=== PATIENT | female | born 1995 | race Caucasian/White ===

== ENCOUNTER 2016-10-25 16:37 | Observation (INO) | payer BC, MEDICAID ==
[2016-10-25 17:31] LABS: AMORPHOUS SEDIMENT,URINE TRACE /HPF; APPEARANCE,URINE CLOUDY; BILIRUBIN,URINE NEGATIVE (NEGATIVE); GLUCOSE, URINE NEGATIVE (NEGATIVE); KETONES,URINE NEGATIVE (NEGATIVE); LEUKOCYTE ESTERASE,URINE NEGATIVE (NEGATIVE); NITRITE,URINE NEGATIVE (NEGATIVE); PROTEIN,URINE NEGATIVE (NEGATIVE); UROBILINOGEN,URINE NEGATIVE mg/dL (<2.0)
[2016-10-25 17:45] LABS: URINE BARBITURATES SCREEN NEGATIVE; URINE METHADONE SCREEN NEGATIVE; URINE OPIATES LOW NEGATIVE; URINE PHENCYCLIDINE SCREEN NEGATIVE
[2016-10-25] MEDS ORDERED: NALBUPHINE HCL INJ 10 MG/1 ML AMPULE ONE (17:49)
[2016-10-25 18:05] LABS: ABSOLUTE EOSINOPHILS # (AUTO) 0.1 10^3/uL (0.0-0.6); ABSOLUTE LYMPHOCYTES (AUTO) 1.9 10^3/uL (0.5-4.7); ABSOLUTE MONOCYTES (AUTO) 0.6 10^3/uL (0.1-1.4); ABSOLUTE NEUT (AUTO) 7.8 10^3/uL (1.7-8.2); BASOPHILS % (AUTO) 0.1 % (0-2); EOSINOPHILS % (AUTO) 1.2 % (0-6); HEMATOCRIT 37.6 % (36.0-47.0); HEMOGLOBIN 12.7 g/dL (12.0-15.5); HGB HCT DIFFERENCE 0.5; LYMPHOCYTES % (AUTO) 18.1 % (13-45); MEAN CORPUSCULAR HGB CONC 33.8 g/dL (32.0-36.0); MEAN CORPUSCULAR VOLUME 92 fl (80-97); MONOCYTES % (AUTO) 5.6 % (3-13); RED BLOOD COUNT 4.11 10^6/uL (3.72-5.28); RED CELL DISTRIBUTION WIDTH 13.6 % (11.5-14.0); WHITE BLOOD COUNT 10.4 10^3/uL (4.0-10.5)
[2016-10-25 18:29] LABS: ALANINE AMINOTRANSFERASE 22 U/L (9-52); ALBUMIN 3.6 g/dL (3.5-5.0); ALKALINE PHOSPHATASE 103 U/L (38-126); ANION GAP 11 (5-19); ASPARTATE AMINO TRANSFERASE 17 U/L (14-36); BILIRUBIN,DIRECT 0.2 mg/dL (0.0-0.4); BILIRUBIN,TOTAL 0.3 mg/dL (0.2-1.3); BLOOD UREA NITROGEN 5 mg/dL (7-20); CALCIUM 9.1 mg/dL (8.4-10.2); CARBON DIOXIDE 19 mmol/L (22-30); CHLORIDE 105 mmol/L (98-107); CREATININE RESULT 0.47 mg/dL (0.52-1.25); GLUCOSE 82 mg/dL (75-110); POTASSIUM 4.2 mmol/L (3.6-5.0); SODIUM 135.4 mmol/L (137-145); TOTAL PROTEIN 6.8 g/dL (6.3-8.2)
[2016-10-25] MEDS ORDERED: HYDROMORPHONE HCL INJ/PF 2 MG/ML AMPULE ONE (18:52)
--- NOTE | 2016-10-25 18:53 | RADIOLOGY REPORT (SQ) ---
EXAM DESCRIPTION: U/S RETROPERITON (RENAL/AORTA) COMPLETED DATE/TIME: 10/25/2016 6:39 pm REASON FOR STUDY: flank pain COMPARISON: None. TECHNIQUE: Dynamic and static grayscale images acquired of the kidneys and bladder and recorded on P ACS. Additional selected color Doppler and spectral images recorded. LIMITATIONS: None. FINDINGS: RIGHT KIDNEY: Normal size. Normal echogenicity. No solid or suspicious masses. No hydrone phrosis. No calcifications. LEFT KIDNEY: Normal size. Normal echogenicity. No solid or suspicious masses. No hydronephrosis. No calcifications. BLADDER: No masses. OTHER FINDINGS: No other significant finding. IMPRESSION: NORMAL RENAL AND BLADDER ULTRASOUND. COMMENT: The degree of renal pelvicalyceal dilation is within normal limits for the patient's curren t stage of . TECHNICAL DOCUMENTATION: JOB ID: [id number] [employer]- All Rights Reserved
--- NOTE | 2016-10-25 19:05 | RADIOLOGY REPORT (SQ) ---
EXAM DESCRIPTION: U/S OB LIMITED COMPLETED DATE/TIME: 10/25/2016 6:49 pm REASON FOR STUDY: cervical length, pre term labor COMPARISON: None. TECHNIQUE: Limited transabdominal grayscale ultrasound for evaluation of specific requested obstetri adina parameters. LIMITATIONS: None. FINDINGS: CERVICAL LENGTH: 3.3 cm Closed. PARESH: Not done cm. FHR: 139 beats per minute. PRESENTATION: Breech OTHER: No other significant findings. IMPRESSION: There is a live fetus in a breech presentation. The cervix is closed and measures 3.3 c m. Trimester of : Third trimester - 28 weeks to delivery. TECHNICAL DOCUMENTATION: JOB ID: [id number] [employer]- All Rights Reserved
[2016-10-25] MEDS ORDERED: DIPHENHYDRAMINE HCL 50 MG/ML VIAL ONE (19:37)
[2016-10-26] MEDS: OXYCODONE-ACETAMINOPHEN 5-325 MG TABLET PO PRN ×3 (00:15→09:05)
--- NOTE | 2016-10-26 14:25 | PDOC PROGRESS REPORT ---
Subjective Progress Note for:: 10/26/16 Subjective:: indicates pain is improved from admission. is tolerating PO without difficulty Physical Exam - Physical Exam Vital Signs: Temp Pulse Resp BP Pulse Ox 97.9 F 85 16 107/58 L 99 10/26/16 08:05 10/26/16 08:05 10/26/16 08:05 10/26/16 08:05 10/26/16 08:05 Intake & Output 10/25/16 10/26/16 10/27/16 06:59 06:59 06:59 Intake Total 1300 Output Total 500 2500 Balance 800 -2500 Weight 87.95 kg General appearance: PRESENT: no acute distress GI/Abdominal exam: PRESENT: soft - gravid, +CVA tenderness on left Result Laboratory Results: 10/25/16 17:34 10/25/16 17:34 10/25/16 10/25/16 10/25/16 17:05 17:34 17:34 WBC 10.4 RBC 4.11 Hgb 12.7 Hct 37.6 MCV 92 MCH 31.0 MCHC 33.8 RDW 13.6 Plt Count 165 Seg Neutrophils % 75.0 Lymphocytes % 18.1 Monocytes % 5.6 Eosinophils % 1.2 Basophils % 0.1 Absolute Neutrophils 7.8 Absolute Lymphocytes 1.9 Absolute Monocytes 0.6 Absolute Eosinophils 0.1 Absolute Basophils 0.0 Sodium 135.4 L Potassium 4.2 Chloride 105 Carbon Dioxide 19 L Anion Gap 11 BUN 5 L Creatinine 0.47 L Est GFR ( Amer) > 60 Est GFR (Non-Af Amer) > 60 Glucose 82 Calcium 9.1 Total Bilirubin 0.3 AST 17 ALT 22 Alkaline Phosphatase 103 Total Protein 6.8 Albumin 3.6 Urine Color YELLOW Urine Appearance CLOUDY Urine pH 8.0 Ur Specific [place] 1.010 Urine Protein NEGATIVE Urine Glucose (UA) NEGATIVE Urine Ketones NEGATIVE Urine Blood LARGE H Urine Nitrite NEGATIVE Ur Leukocyte Esterase NEGATIVE Urine RBC (Auto) >182 Impressions: Obstetrics Ultrasound 10/25/16 00:00 IMPRESSION: There is a live fetus in a breech presentation. The cervix is closed and measures 3.3 cm. Trimester of : Third trimester - 28 weeks to delivery. Renal Ultrasound 10/25/16 00:00 IMPRESSION: NORMAL RENAL AND BLADDER ULTRASOUND. Assessment & Plan - Diagnosis (1) Renal lithiasis Is this a current diagnosis for this admission?: Yes (2) Second trimester Is this a current diagnosis for this admission?: Yes - Time Time Spent with patient: Less than 15 minutes Critical Time spent with patient: Less than 15 minutes Anticipated discharge: Home Within: within 24 hours Disposition: continue IV hydration and pain control. If continues to improve overnight will discharge in AM.
[2016-10-26 15:20] LABS: APPEARANCE,URINE SLIGHTLY-CLOUDY; BILIRUBIN,URINE NEGATIVE (NEGATIVE); GLUCOSE, URINE NEGATIVE (NEGATIVE); KETONES,URINE NEGATIVE (NEGATIVE); LEUKOCYTE ESTERASE,URINE TRACE (NEGATIVE); NITRITE,URINE NEGATIVE (NEGATIVE); PROTEIN,URINE NEGATIVE (NEGATIVE); URINE SPECIFIC GRAVITY 1.004; UROBILINOGEN,URINE NEGATIVE mg/dL (<2.0)
[2016-10-26] MEDS: RINGERS SOLUTION,LACTATED 1,000 ML IV PRN (18:30)
[2016-10-27] MEDS: OXYCODONE-ACETAMINOPHEN 5-325 MG TABLET PO PRN ×2 (02:24→09:44)
[2016-10-27] MEDS ORDERED: HYDROMORPHONE HCL INJ/PF 2 MG/ML AMPULE ONE (03:36)
[2016-10-27] MEDS ORDERED: HYDROMORPHONE HCL INJ/PF 2 MG/ML AMPULE IV ONE (03:45)
[2016-10-27] MEDS ORDERED: CEFTRIAXONE 1 GM/D5W RTU 1 GM/50 ML RTUPB IV ONE ×2 (03:57→04:00)
[2016-10-27] MEDS: RINGERS SOLUTION,LACTATED 1,000 ML IV PRN ×2 (04:04→19:32)
--- NOTE | 2016-10-27 09:36 | PDOC PROGRESS REPORT ---
Subjective Subjective:: Pt reports feeling a little better this morning Had to receive IV Dilaudid overnight for pain control No n/v No ctx's, vb or lof Physical Exam - Physical Exam Vital Signs: Temp Pulse Resp BP Pulse Ox 98.2 F 83 16 108/68 100 10/26/16 20:08 10/26/16 20:08 10/26/16 20:08 10/26/16 20:08 10/26/16 20:08 Intake & Output 10/26/16 10/27/16 10/28/16 06:59 06:59 06:59 Intake Total 1300 1825 Output Total 500 3500 Balance 800 -1675 Weight 87.95 kg General appearance: PRESENT: no acute distress, cooperative, well-developed GI/Abdominal exam: PRESENT: soft - Mild Left CVA tenderness Result Laboratory Results: 10/25/16 17:34 10/25/16 17:34 10/26/16 14:50 Urine Color STRAW Urine Appearance SLIGHTLY-CLOUDY Urine pH 8.0 Ur Specific [place] 1.004 Urine Protein NEGATIVE Urine Glucose (UA) NEGATIVE Urine Ketones NEGATIVE Urine Blood MODERATE H Urine Nitrite NEGATIVE Ur Leukocyte Esterase TRACE H Urine WBC (Auto) 3 Urine RBC (Auto) 6 Impressions: Obstetrics Ultrasound 10/25/16 00:00 IMPRESSION: There is a live fetus in a breech presentation. The cervix is closed and measures 3.3 cm. Trimester of : Third trimester - 28 weeks to delivery. Renal Ultrasound 10/25/16 00:00 IMPRESSION: NORMAL RENAL AND BLADDER ULTRASOUND. Assessment & Plan - Diagnosis (1) Renal lithiasis Is this a current diagnosis for this admission?: Yes (2) Second trimester Is this a current diagnosis for this admission?: Yes - Time Time Spent with patient: 15-24 minutes Medications reviewed and adjusted accordingly: Yes Anticipated discharge: Home Within: within 24 hours - Will continue IV Rocephin for another 24 hours Plan d/ c in AM
[2016-10-27 10:07] LABS: ABSOLUTE EOSINOPHILS # (AUTO) 0.1 10^3/uL (0.0-0.6); ABSOLUTE LYMPHOCYTES (AUTO) 1.5 10^3/uL (0.5-4.7); ABSOLUTE MONOCYTES (AUTO) 0.5 10^3/uL (0.1-1.4); ABSOLUTE NEUT (AUTO) 6.5 10^3/uL (1.7-8.2); BASOPHILS % (AUTO) 0.2 % (0-2); EOSINOPHILS % (AUTO) 1.2 % (0-6); HEMATOCRIT 35.6 % (36.0-47.0); HGB HCT DIFFERENCE 0.4; LYMPHOCYTES % (AUTO) 17.7 % (13-45); MEAN CORPUSCULAR HEMOGLOBIN 31.2 pg (27.0-33.4); MEAN CORPUSCULAR HGB CONC 33.6 g/dL (32.0-36.0); MEAN CORPUSCULAR VOLUME 93 fl (80-97); MONOCYTES % (AUTO) 5.3 % (3-13); RED BLOOD COUNT 3.84 10^6/uL (3.72-5.28); SEGMENTED NEUTROPHILS % (AUTO) 75.6 % (42-78); WHITE BLOOD COUNT 8.6 10^3/uL (4.0-10.5)
[2016-10-27 10:29] LABS: ANION GAP 7 (5-19); BLOOD UREA NITROGEN 4 mg/dL (7-20); CALCIUM 8.8 mg/dL (8.4-10.2); CARBON DIOXIDE 24 mmol/L (22-30); CHLORIDE 105 mmol/L (98-107); CREATININE RESULT 0.45 mg/dL (0.52-1.25); GLUCOSE 72 mg/dL (75-110); POTASSIUM 3.8 mmol/L (3.6-5.0); SODIUM 136.4 mmol/L (137-145)
[2016-10-27] MEDS: CEFTRIAXONE 1 GM/D5W RTU 1 GM/50 ML RTUPB IV SCH (17:24)
[2016-10-28] MEDS: RINGERS SOLUTION,LACTATED 1,000 ML IV PRN (02:52)
[2016-10-28] MEDS: CEFTRIAXONE 1 GM/D5W RTU 1 GM/50 ML RTUPB IV SCH (05:43)
[2016-10-28 09:28] VITALS: BP 109/69
--- NOTE | 2016-10-28 10:39 | Admission Physical ---
Datetime Report Generated by CPN: 10/28/2016 10:39 CURRENT ADMISSION Chief Complaint: Maternal Discomfort; Other Chief Complaint Other: left flank pain Indication for Induction: Not Applicable Admit Plan: Admit to Unit Admit Plan- Other: admit to floor for pain control ALLERGIES Medication Allergies: Yes Medication Allergies: dexamethasone/tingling (03/11/2016); grapefruit/MO/SKIN RASH (03/09/2016); banana/SV/Anaphylaxis (03/09/2016) Latex: No Latex Allergies OBSTETRICAL HISTORY : 2 Para: 1 Term: 1 : 0 SAB: 0 IAB: 0 Ectopic: 0 Livin Cesareans: 1 VBACs: 0 Multiple Births: 0 Gestational Diabetes: No Rh Sensitization: No Incompetent Cervix: No JEREMIAH: No Infertility: No ART Treatment: No Uterine Anomaly: No IUGR: No Hx Previous C/S: Yes Macrosomia: No Hx Loss/Stillborn: No PIH: No Hx : No Placenta Previa/Abruption: No Depression/PP Depression: No PTL/PROM: No Post Hemorrhage: No Obstetrical History Comments: G1: c/s for chorio SEE RECORDS Alcohol: No Marijuana : No Cocaine: No Other Illicit Drugs: No Cigarettes: Never Smoker. [id number] MEDICAL HISTORY Diabetes: No Blood Transfusion: No Pulmonary Disease (Asthma, TB): No Breast Disease: No Hypertension: No Floor Nurse Surgery: No Heart Disease: No Hosp/Surgery: Yes Autoimmune Disorder: No Anesthetic Complications: No Kidney Disease: Yes Abnormal Pap Smear: No Neuro/Epilepsy: No Psychiatric Disorders: No Other Medical Diseases: No Hepatitis/Liver Disease: No Significant Family History: No Varicosities/Phlebitis: No Trauma/Violence : No Thyroid Dysfunction: No Medical History Comments: c/s kidney infection widsom teeth, lumpectomy left armpit PPD- zoloft after G1 INFECTIOUS HISTORY Gonorrhea: No Genital Herpes: No Chlamydia: No Tuberculosis: No Syphilis: No Hepatitis: No HIV/AIDS Exposure: No Rash or Viral Illness: No HPV: No PHYSICAL EXAM General: Normal HEENT: Normal Neurologic: Normal Thyroid: Normal Heart: Normal Lungs: Normal Breast: Deferred Back: Normal Abdomen: Abnormal Genitourinary Exam: Normal Extremities: Normal DTRs: Normal Pelvic Type: Adequate Physical Exam Comments: CVAT and flank pain. LLQ ttp no ttp over uterine incision site Vital Signs: Reviewed; Within Normal Limits VAGINAL EXAM Dilatation: 0 Effacement: 0 Station: -3 FETUS A Monitoring: External US FHR- Baseline: 130 Variability: Moderate 6-25bpm Accelerations: 10X10 FHR Category: Category I PLANS FOR LABOR AND DELIVERY Feeding Preference: Breast Benefit of Breast Feed Discussed: Yes Circumcision: N/A INFORMED CONSENT Informed Consent Obtained: Section Delivery; Risks, Benefits and Alternatives Discussed
--- NOTE | 2016-10-28 10:49 | Admission Physical ---
Datetime Report Generated by CPN: 10/28/2016 10:49 CURRENT ADMISSION Chief Complaint: Maternal Discomfort; Other Chief Complaint Other: left flank pain Indication for Induction: Not Applicable Admit Plan: Admit to Unit Admit Plan- Other: admit to floor for pain control ALLERGIES Medication Allergies: Yes Medication Allergies: dexamethasone/tingling (03/11/2016); grapefruit/MO/SKIN RASH (03/09/2016); banana/SV/Anaphylaxis (03/09/2016) Latex: No Latex Allergies OBSTETRICAL HISTORY EDC: 01/29/2017 00:00 : 2 Para: 1 Term: 1 : 0 SAB: 0 IAB: 0 Ectopic: 0 Livin Cesareans: 1 VBACs: 0 Multiple Births: 0 Gestational Diabetes: No Rh Sensitization: No Incompetent Cervix: No JEREMIAH: No Infertility: No ART Treatment: No Uterine Anomaly: No IUGR: No Hx Previous C/S: Yes Macrosomia: No Hx Loss/Stillborn: No PIH: No Hx : No Placenta Previa/Abruption: No Depression/PP Depression: No PTL/PROM: No Post Hemorrhage: No Obstetrical History Comments: G1: c/s for chorio SEE RECORDS Alcohol: No Marijuana : No Cocaine: No Other Illicit Drugs: No Cigarettes: Never Smoker. [id number] MEDICAL HISTORY Diabetes: No Blood Transfusion: No Pulmonary Disease (Asthma, TB): No Breast Disease: No Hypertension: No Sausage Stuffer Surgery: No Heart Disease: No Hosp/Surgery: Yes Autoimmune Disorder: No Anesthetic Complications: No Kidney Disease: Yes Abnormal Pap Smear: No Neuro/Epilepsy: No Psychiatric Disorders: No Other Medical Diseases: No Hepatitis/Liver Disease: No Significant Family History: No Varicosities/Phlebitis: No Trauma/Violence : No Thyroid Dysfunction: No Medical History Comments: c/s kidney infection widsom teeth, lumpectomy left armpit PPD- zoloft after G1 INFECTIOUS HISTORY Gonorrhea: No Genital Herpes: No Chlamydia: No Tuberculosis: No Syphilis: No Hepatitis: No HIV/AIDS Exposure: No Rash or Viral Illness: No HPV: No PHYSICAL EXAM General: Normal HEENT: Normal Neurologic: Normal Thyroid: Normal Heart: Normal Lungs: Normal Breast: Deferred Back: Normal Abdomen: Abnormal Genitourinary Exam: Normal Extremities: Normal DTRs: Normal Pelvic Type: Adequate Physical Exam Comments: CVAT and flank pain. LLQ ttp no ttp over uterine incision site Vital Signs: Reviewed; Within Normal Limits VAGINAL EXAM Dilatation: 0 Effacement: 0 Station: -3 FETUS A EGA: 26.2 Monitoring: External US FHR- Baseline: 130 Variability: Moderate 6-25bpm Accelerations: 10X10 FHR Category: Category I Admit Comment: 20yo (C/S for chorioamnionits and reports she has a suture allergy who presents with sudden onset left sided pain and flank pain which radiates to LLQ that began at approx 4pm this afternoon. She required several doses of IV pain medication to help with pain control. IV hydration and urine straining ordered. IV pain meds prn. Ok to eat. Admit for IV pain meds prn until passes kidney stone. PLANS FOR LABOR AND DELIVERY Feeding Preference: Breast Benefit of Breast Feed Discussed: Yes Circumcision: N/A INFORMED CONSENT Informed Consent Obtained: Section Delivery; Risks, Benefits and Alternatives Discussed Signature: with User ID: [email or web address]
--- NOTE | 2016-11-01 19:48 | PDOC DISCHARGE SUMMARY ---
General - Admit/Disc Date/PCP Admission Date/Primary Care Provider: 10/25/16 21:14 MICAH RIZO MD Discharge Date: 10/28/16 - Discharge Diagnosis (1) GBS bacteriuria Is this a current diagnosis for this admission?: YesSummary: rx given and will need treatment in labor (2) Renal lithiasis Is this a current diagnosis for this admission?: YesSummary: needs prophy for the remainder of her (3) Second trimester Is this a current diagnosis for this admission?: YesSummary: f/u in office - Additional Information Discharge Diet: As Tolerated, Regular Discharge Activity: Activity As Tolerated, Pelvic Rest Home Medications: Amoxicillin 1 tab PO QID #40 tab 10/28/16 Nitrofurantoin Monohyd/M-Cryst [Macrobid 100 mg Capsule] 100 mg PO QHS #30 capsule 10/28/16 Oxycodone HCl/Acetaminophen [Percocet 5-325 mg Tablet] 1 tab PO Q4HP PRN #30 tablet 10/28/16 History of Present Illness Patient complains of: severe flank pain. History of Present Illness: CLARITA CABRAL is a 20 year old female Hospital Course Hospital Course: admitted for LLQ pain and Nephrolithiasis due to requirement fo IV pain meds. Pain resolved and pt sent home on po abx/pain meds. Physical Exam - Physical Exam Vital Signs: Temp Pulse Resp BP Pulse Ox 98.0 F 80 16 109/69 99 10/28/16 08:47 10/28/16 08:47 10/28/16 08:47 10/28/16 08:47 10/28/16 08:47 Intake & Output 10/27/16 10/28/16 10/29/16 06:59 06:59 06:59 Intake Total 1825 1500 Output Total 3500 3250 Balance -1675 -1750 General appearance: PRESENT: no acute distress, well-developed, well-nourished Head exam: PRESENT: atraumatic, normocephalic Respiratory exam: PRESENT: clear to auscultation roderick, symmetrical Cardiovascular exam: PRESENT: RRR. ABSENT: diastolic murmur, rubs, systolic murmur Pulses: PRESENT: normal dorsalis pedis pul, +2 pedal pulses bilateral GI/Abdominal exam: PRESENT: normal bowel sounds, soft. ABSENT: distended, guarding, mass, organolmegaly, rebound, tenderness Rectal exam: PRESENT: deferred Extremities exam: PRESENT: full ROM. ABSENT: calf tenderness, clubbing, pedal edema Neurological exam: PRESENT: alert, awake, oriented to person, oriented to place , oriented to time, oriented to situation, CN II-XII grossly intact. ABSENT: motor sensory deficit Psychiatric exam: PRESENT: appropriate affect, normal mood. ABSENT: homicidal ideation, suicidal ideation Skin exam: PRESENT: dry, intact, warm. ABSENT: cyanosis, rash Result Laboratory Results: 10/27/16 10:00 10/27/16 10:00 10/26/16 01:05 Clean Catch Midstream Urine Culture - Final Mixed Urogenital Chanel Group B Beta Streptococcus Impressions: Obstetrics Ultrasound 10/25/16 00:00 IMPRESSION: There is a live fetus in a breech presentation. The cervix is closed and measures 3.3 cm. Trimester of : Third trimester - 28 weeks to delivery. Renal Ultrasound 10/25/16 00:00 IMPRESSION: NORMAL RENAL AND BLADDER ULTRASOUND. Plan Discharge Plan: home Time Spent: Less than 30 Minutes
--- NOTE | 2016-11-01 19:50 | PDOC PROGRESS REPORT ---
Subjective Progress Note for:: 10/28/16 Subjective:: pain resolved and doing well. Physical Exam - Physical Exam Vital Signs: Temp Pulse Resp BP Pulse Ox 98.0 F 80 16 109/69 99 10/28/16 08:47 10/28/16 08:47 10/28/16 08:47 10/28/16 08:47 10/28/16 08:47 Intake & Output 10/27/16 10/28/16 10/29/16 06:59 06:59 06:59 Intake Total 1825 1500 Output Total 3500 3250 Balance -1675 -1750 General appearance: PRESENT: no acute distress, well-developed, well-nourished Head exam: PRESENT: atraumatic, normocephalic Respiratory exam: PRESENT: clear to auscultation roderick, symmetrical, unlabored Cardiovascular exam: PRESENT: RRR. ABSENT: diastolic murmur, rubs, systolic murmur Pulses: PRESENT: normal dorsalis pedis pul, +2 pedal pulses bilateral GI/Abdominal exam: PRESENT: normal bowel sounds, soft. ABSENT: distended, guarding, mass, organolmegaly, rebound, tenderness Rectal exam: PRESENT: deferred Extremities exam: PRESENT: full ROM. ABSENT: calf tenderness, clubbing, pedal edema Neurological exam: PRESENT: alert, awake, oriented to person, oriented to place , oriented to time, oriented to situation, CN II-XII grossly intact. ABSENT: motor sensory deficit Psychiatric exam: PRESENT: appropriate affect, normal mood. ABSENT: homicidal ideation, suicidal ideation Skin exam: PRESENT: dry, intact, warm. ABSENT: cyanosis, rash Result Laboratory Results: 10/27/16 10:00 10/27/16 10:00 10/26/16 01:05 Clean Catch Midstream Urine Culture - Final Mixed Urogenital Chanel Group B Beta Streptococcus Impressions: Obstetrics Ultrasound 10/25/16 00:00 IMPRESSION: There is a live fetus in a breech presentation. The cervix is closed and measures 3.3 cm. Trimester of : Third trimester - 28 weeks to delivery. Renal Ultrasound 10/25/16 00:00 IMPRESSION: NORMAL RENAL AND BLADDER ULTRASOUND. Status: Imported from PACS Assessment & Plan - Diagnosis (1) Second trimester Is this a current diagnosis for this admission?: YesPlan: f/u in office (2) Renal lithiasis Is this a current diagnosis for this admission?: YesPlan: needs prophy for the remainder of (3) GBS bacteriuria Is this a current diagnosis for this admission?: Yes - Time Time Spent with patient: 15-24 minutes Critical Time spent with patient: Less than 15 minutes Medications reviewed and adjusted accordingly: Yes Anticipated discharge: Home Within: within 24 hours - Inpatient Certification Based on my medical assessment, after consideration of the patient's comorbidities, presenting symptoms, or acuity I expect that the services needed warrant INPATIENT care.: No I certify that my determination is in accordance with my understanding of Medicare's requirements for reasonable and necessary INPATIENT services [42 CFR 412.3e].: No Post Hospital Care: D/C Meat Inspector Documentation
== END 2016-10-28 12:01 | disposition home or self-care (01) ==
LOC: LC 16:37 → LR 21:14 → INTOOBSV 21:14 → 2S 22:19
PROVIDERS: ADMIT Student in an Organized Health Care Education/Training Program; ATTEND Student in an Organized Health Care Education/Training Program
DX: O26.832 Pregnancy related renal disease, second trimester (principal); N20.0 Calculus of kidney; O99.820 Streptococcus B carrier state complicating pregnancy; Z3A.28 28 weeks gestation of pregnancy
CPT/HCPCS: 36415 ×2; 87086 ×2; 85025 ×2; 87088; 80048; 80053; 81001 ×2; 80307; 76770; 76815; J1200; J2300; J1170 ×2; J7120 ×3; J0696 ×2; G0378; G0379

== ENCOUNTER 2020-03-27 11:24 | Emergency (ER) | payer BC, MEDICAID ==
[2020-03-27 11:48] VITALS: BP 130/74
== END 2020-03-27 11:54 | disposition left against medical advice (07) ==
LOC: ER 11:24
DX: Z53.21 Procedure and treatment not carried out due to patient leaving prior to being seen by health care provider (principal)

== ENCOUNTER 2020-03-27 13:20 | Emergency (ER) | payer BC, MEDICAID, OTHER ==
--- NOTE | 2020-03-27 14:14 | ER Document Report ---
ED Medical Screen (RME) - General Chief Complaint: Dizziness Stated Complaint: DIZZINESS, HEADACHE, PRESSURE BEHIND EYE Time Seen by Provider: 03/27/20 14:00 Primary Care Provider: JORGE A CALLE MD [Primary Care Provider] - Follow up as needed Mode of Arrival: Ambulatory Information source: Patient TRAVEL OUTSIDE OF THE [place] IN LAST 30 DAYS: No - HPI Notes: Patient is a 24 y/o female with no medical hx who presents with headache and dizziness for the past week. On 03/17/20, patient was started on a steroid dose-pack after having an allergic reaction to pet dander. The following day she syncopized in the shower after turning quickly and was out for about 10 seconds. Patient's was in the shower and was able to catch her fall. Patient denies hitting her head. Since the syncopal event, patient has had headache, dizziness, and nausea. She denies any chest pain or shortness of breath. - Related Data Allergies/Adverse Reactions: banana [Banana] Allergy (Severe, Verified 03/27/20 13:49) Anaphylaxis grapefruit Allergy (Intermediate, Verified 03/27/20 13:49) SKIN RASH dexamethasone [From Decadron] Adverse Reaction (Verified 03/27/20 13:49) tingling cats Allergy (Severe, Uncoded 03/27/20 13:49) Hives stitches Allergy (Severe, Uncoded 03/27/20 13:49) redness swelling itching Home Medications: sertraline, jazmyne BCpills Past Medical History - General Information source: Patient - Social History Chew tobacco use (# tins/day): No Frequency of alcohol use: None Drug Abuse: None Lives with: Family - Past Medical History Cardiac Medical History: Denies: Hx Coronary Artery Disease, Hx DVT, Hx Heart Attack, Hx Hypercholesterolemia, Hx Hypertension, Hx Pulmonary Embolism Pulmonary Medical History: Denies: Hx Asthma, Hx Bronchitis, Hx COPD, Hx Pneumonia Neurological Medical History: Denies: Hx Cerebrovascular Accident, Hx Seizures Endocrine Medical History: Denies: Hx Diabetes Mellitus Type 1, Hx Diabetes Mellitus Type 2, Hx Hyperthyroidism, Hx Hypothyroidism GI Medical History: Denies: Hx Cirrhosis, Hx Gastroesophageal Reflux Disease, Hx Hepatitis Musculoskeltal Medical History: Denies Hx Arthritis Psychiatric Medical History: Reports: Hx Depression Infectious Medical History: Denies: Hx Hepatitis, Hx MRSA Past Surgical History: Reports: Hx Section, Hx Oral Surgery - Immunizations Hx Diphtheria, Pertussis, Tetanus Vaccination: Yes Physical Exam - Vital signs Vitals: Temp Pulse Resp BP Pulse Ox 98.3 F 114 H 18 135/88 H 100 03/27/20 13:41 03/27/20 13:41 03/27/20 13:41 03/27/20 13:41 03/27/20 13:41 - HEENT Pupils: PERRL - Respiratory Respiratory status: No respiratory distress Breath sounds: Normal - Cardiovascular Rhythm: Regular Heart sounds: Normal auscultation Course - Re-evaluation Re-evalutation: I have greeted and performed a rapid initial assessment of this patient. A comprehensive ED assessment and evaluation of the patient, analysis of test results and completion of medical decision making process will be conducted by an additional ED providers. - Vital Signs Vital signs: Temp Pulse Resp BP Pulse Ox 98.3 F 114 H 18 135/88 H 100 03/27/20 13:41 03/27/20 13:41 03/27/20 13:41 03/27/20 13:41 03/27/20 13:41 Doctor's Discharge - Discharge Referrals: JORGE A CALLE MD [Primary Care Provider] - Follow up as needed
[2020-03-27 15:09] LABS: ABSOLUTE EOSINOPHILS # (AUTO) 0.2 10^3/uL (0.0-0.6); ABSOLUTE LYMPHOCYTES (AUTO) 2.1 10^3/uL (0.5-4.7); ABSOLUTE MONOCYTES (AUTO) 0.5 10^3/uL (0.1-1.4); ABSOLUTE NEUT (AUTO) 7.6 10^3/uL (1.7-8.2); BASOPHILS % (AUTO) 0.1 % (0-2); HEMATOCRIT 42.2 % (36.0-47.0); HEMOGLOBIN 14.6 g/dL (12.0-15.5); LYMPHOCYTES % (AUTO) 20.6 % (13-45); MEAN CORPUSCULAR HEMOGLOBIN 30.2 pg (27.0-33.4); MEAN CORPUSCULAR HGB CONC 34.6 g/dL (32.0-36.0); MEAN CORPUSCULAR VOLUME 87 fl (80-97); MONOCYTES % (AUTO) 4.5 % (3-13); PLATELET COUNT 236 10^3/uL (150-450); RED BLOOD COUNT 4.83 10^6/uL (3.72-5.28); SEGMENTED NEUTROPHILS % (AUTO) 72.8 % (42-78); TOTAL CELLS COUNTED % (AUTO) 100 %; WHITE BLOOD COUNT 10.4 10^3/uL (4.0-10.5)
[2020-03-27 15:19] LABS: APPEARANCE,URINE SLIGHTLY-CLOUDY; BILIRUBIN,URINE NEGATIVE (NEGATIVE); COLOR,URINE YELLOW; GLUCOSE, URINE NEGATIVE (NEGATIVE); KETONES,URINE NEGATIVE (NEGATIVE); LEUKOCYTE ESTERASE,URINE SMALL (NEGATIVE); NITRITE,URINE NEGATIVE (NEGATIVE); PROTEIN,URINE NEGATIVE (NEGATIVE); URINE SPECIFIC GRAVITY 1.016; UROBILINOGEN,URINE NEGATIVE mg/dL (<2.0)
[2020-03-27 15:32] LABS: ALBUMIN 4.1 g/dL (3.5-5.0); ALKALINE PHOSPHATASE 88 U/L (38-126); ANION GAP 11 (5-19); ASPARTATE AMINO TRANSFERASE 23 U/L (14-36); BILIRUBIN,DIRECT 0.1 mg/dL (0.0-0.4); BILIRUBIN,TOTAL 0.4 mg/dL (0.2-1.3); BLOOD UREA NITROGEN 7 mg/dL (7-20); CALCIUM 9.5 mg/dL (8.4-10.2); CARBON DIOXIDE 27 mmol/L (22-30); CHLORIDE 103 mmol/L (98-107); GLUCOSE 106 mg/dL (75-110); POTASSIUM 4.2 mmol/L (3.6-5.0); TOTAL PROTEIN 7.6 g/dL (6.3-8.2)
--- NOTE | 2020-03-27 18:36 | ER Document Report ---
Entered by KHLOE CARBONE SCRIBE 03/27/20 1732 Acting as scribe for:GHISLAINE DAVIDSON DO ED General - General Chief Complaint: Dizziness Stated Complaint: DIZZINESS, HEADACHE, PRESSURE BEHIND EYE Time Seen by Provider: 03/27/20 14:00 Primary Care Provider: JORGE A CALLE MD [Primary Care Provider] - Follow up as needed Mode of Arrival: Ambulatory Notes: This 24 year old female patient presents to the emergency department today with complaints of a headache, dizziness, and pressure behind her eyes since a syncopal event that occurred last week. Just prior to the syncopal event the patient had been started on prednisone for an allergic reaction and she was wondering if it could be related to that. Patient states the main reason she came into the ED today was to rule out anything dangerous that could be causing this headache and pressure behind her eyes. TRAVEL OUTSIDE OF THE [place] IN LAST 30 DAYS: No - Related Data Allergies/Adverse Reactions: banana [Banana] Allergy (Severe, Verified 03/27/20 13:49) Anaphylaxis grapefruit Allergy (Intermediate, Verified 03/27/20 13:49) SKIN RASH dexamethasone [From Decadron] Adverse Reaction (Verified 03/27/20 13:49) tingling cats Allergy (Severe, Uncoded 03/27/20 13:49) Hives stitches Allergy (Severe, Uncoded 03/27/20 13:49) redness swelling itching Home Medications: sertraline, jazmyne BCpills Past Medical History - General Information source: Patient - Social History Smoking Status: Never Smoker Chew tobacco use (# tins/day): No Frequency of alcohol use: None Drug Abuse: None Lives with: Family Family History: Reviewed & Not Pertinent Patient has homicidal ideation: No - Past Medical History Cardiac Medical History: Denies: Hx Coronary Artery Disease, Hx DVT, Hx Heart Attack, Hx Hypercholesterolemia, Hx Hypertension, Hx Pulmonary Embolism Pulmonary Medical History: Denies: Hx Asthma, Hx Bronchitis, Hx COPD, Hx Pneumonia Neurological Medical History: Denies: Hx Cerebrovascular Accident, Hx Seizures Endocrine Medical History: Denies: Hx Diabetes Mellitus Type 1, Hx Diabetes Mellitus Type 2, Hx Hyperthyroidism, Hx Hypothyroidism GI Medical History: Denies: Hx Cirrhosis, Hx Gastroesophageal Reflux Disease, Hx Hepatitis Musculoskeletal Medical History: Denies Hx Arthritis Psychiatric Medical History: Reports: Hx Depression Infectious Medical History: Denies: Hx Hepatitis, Hx MRSA Past Surgical History: Reports: Hx Section, Hx Oral Surgery - Immunizations Hx Diphtheria, Pertussis, Tetanus Vaccination: Yes Physical Exam - Vital signs Vitals: Temp Pulse Resp BP Pulse Ox 98.3 F 114 H 18 135/88 H 100 03/27/20 13:41 03/27/20 13:41 03/27/20 13:41 03/27/20 13:41 03/27/20 13:41 Course - Re-evaluation Re-evalutation: 03/27/20 19:35 MDM 24 year old with dizziness and pressure behind eyes and syncopal event at home in the last week or so. No fever or chills. No chest pain or sob. 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 Her workup here is reassuing. Feel she may safely follow up. - Vital Signs Vital signs: Temp Pulse Resp BP Pulse Ox 98.3 F 114 H 18 135/88 H 100 03/27/20 13:41 03/27/20 13:41 03/27/20 13:41 03/27/20 13:41 03/27/20 13:41 - Laboratory Result Diagrams: 03/27/20 14:34 03/27/20 14:34 Laboratory results interpreted by me: 03/27/20 14:34 Ur Leukocyte Esterase SMALL H Urine Ascorbic Acid 40 H - Diagnostic Test Radiology reviewed: Image reviewed, Reports reviewed Discharge - Discharge Clinical Impression: Dizziness Headache Qualifiers: Headache type: unspecified Headache chronicity pattern: unspecified pattern Intractability: not intractable Qualified Code(s): R51.9 - Headache, unspecified Condition: Stable Disposition: HOME, SELF-CARE Instructions: Antinausea Medication ([facility]), Vertigo ([facility]) Additional Instructions: See your doctor in follow up. The Cat Scan of your head was normal. Take the medicine for nausea and dizziness as needed. Please return here for fever, chest pain, shortness of breath or other problems or concerns. Your medicine was sent to [facility] on [place]. Referrals: JORGE A CALLE MD [Primary Care Provider] - Follow up as needed I personally performed the services described in the documentation, reviewed and edited the documentation which was dictated to the scribe in my presence, and it accurately records my words and actions.
--- NOTE | 2020-03-27 19:21 | RADIOLOGY REPORT (SQ) ---
EXAM DESCRIPTION: CT HEAD WITHOUT IMAGES COMPLETED DATE/TIME: 03/27/2020 7:07 pm REASON FOR STUDY: dizziness/ headache COMPARISON: 2015 TECHNIQUE: Axial images acquired through the brain without intravenous contrast. Images reviewed wi th bone, brain and subdural windows. Additional sagittal and coronal reconstructions were generated. Images stored on PACS. All CT scanners at this facility use dose modulation, iterative reconstruction, and/or weight based d osing when appropriate to reduce radiation dose to as low as reasonably achievable (ALARA). [facility]: Dose Right [facility]: CareDose [facility]: Dose Right [facility]: Teradose 4D [facility]: Smart [facility] RADIATION DOSE: CT Rad equipment meets quality standard of care and radiation dose reduction techniq ues were employed. CTDIvol: 53.2 mGy. DLP: 1097 mGy-cm. mGy. LIMITATIONS: None. FINDINGS: VENTRICLES: Normal size and contour. CEREBRUM: No masses. No hemorrhage. No midline shift. No evidence for acute infarction. Normal gra y/white matter differentiation. No areas of low density in the white matter. CEREBELLUM: No masses. No hemorrhage. No alteration of density. No evidence for acute infarction. EXTRAAXIAL SPACES: No fluid collections. No masses. ORBITS AND GLOBE: No intra- or extraconal masses. Normal contour of globe without masses. CALVARIUM: No fracture. PARANASAL SINUSES: No fluid or mucosal thickening. SOFT TISSUES: No mass or hematoma. OTHER: No other significant finding. IMPRESSION: NORMAL BRAIN CT WITHOUT CONTRAST. EVIDENCE OF ACUTE STROKE: NO. COMMENT: Quality ID # [id number]: Final reports with documentation of one or more dose reduction techniques (e.g., Automated exposure control, adjustment of the mA and/or kV according to patient size, use of iterative reconstruction technique) TECHNICAL DOCUMENTATION: JOB ID: [id number] 2010 [employer]- All Rights Reserved Reading location - IP/workstation name: [email or web address]
--- NOTE | 2020-03-27 19:42 | EKG REPORT ---
SEVERITY:- NORMAL ECG - SINUS RHYTHM : Confirmed by: Maranda Tomas MD 27-Mar-2020 19:40:47
[2020-03-27 20:16] VITALS: BP 130/90
== END 2020-03-27 20:14 | disposition home or self-care (01) ==
LOC: ER 13:20
DX: R51.9 Headache, unspecified (principal); R42 Dizziness and giddiness; F32.9 Major depressive disorder, single episode, unspecified; Z79.899 Other long term (current) drug therapy; Z79.3 Long term (current) use of hormonal contraceptives; Z87.892 Personal history of anaphylaxis; Z91.018 Allergy to other foods; Z91.048 Other nonmedicinal substance allergy status; Z88.8 Allergy status to other drugs, medicaments and biological substances
CPT/HCPCS: 36415; 70450; 80053; 81001; 85025; 93005; 93010; 99285